=== PATIENT | male | born 1990 | race Caucasian/White ===

== ENCOUNTER 2018-11-25 21:05 | Emergency (ER) | payer BC ==
[2018-11-25] MEDS ORDERED: Sodium Chloride 0.9% 1,000 ML IV ONE (21:39)
--- NOTE | 2018-11-25 21:48 | EDM.PDOC ---
<Kisha West - Last Filed: 11/26/18 02:18> ED HPI GENERAL MEDICAL PROBLEM - General Chief Complaint: Flank Pain Stated Complaint: LOW BACK/TROUBLE PEEING Time Seen by Provider: 11/25/18 21:39 - History of Present Illness INITIAL COMMENTS - FREE TEXT/NARRATIVE: This is Dr. West dictating addendum note as I have assumed care of this case at 12 midnight. I reviewed this case with the nurse practitioner and looked at all of the lab tests. The patient did not want anything for pain and refused IV fluids. He was getting his CT scan performed when the machine became dysfunctional and we are currently trying to ascertain whether or not we can get the CT scan are working again. The patient is aware of these delays and once CT is available we will do the scan and/or reevaluate for disposition if the CT is unavailable. Currently at 1:15 AM CAT scan is down for the rest of the night and the patient has been informed of this. We will do a quick KUB and I will discuss this case with Dr. Benito as the patient is not having any active pain and has normal labs. The patient is comfortable with this and is understanding of the situation. 0215: X-ray revealed no evidence of any kidney stone and I discussed this case with Dr. Benito who is happy to follow this patient in the clinic for further care and evaluation as the CT scan machine is not functional until further notice. The patient has been given this information and advised to push hydration and use hofs-ymk-ritdtic meds for pain management - Related Data Allergies Allergy/AdvReac Type Severity Reaction Status Date / Time No Known Allergies Allergy Verified 11/25/18 21:43 Home Meds: Home Meds . [No Known Home Meds] 11/25/18 [History] Course - Vital Signs Last Recorded V/S: Last Vital Signs Temp 97.0 F 11/26/18 02:23 Pulse 68 11/26/18 02:23 Resp 14 11/26/18 02:23 BP 125/72 11/26/18 02:23 Pulse Ox 96 11/26/18 02:23 - Orders/Labs/Meds Labs: Laboratory Tests 11/25/18 11/25/18 11/25/18 Range/Units 21:57 22:08 22:08 WBC 8.99 (4.0-11.0) K/uL RBC 5.62 (4.50-5.90) M/uL Hgb 16.6 (13.0-17.0) g/dL Hct 47.8 (38.0-50.0) % MCV 85.1 (80.0-98.0) fL MCH 29.5 (27.0-32.0) pg MCHC 34.7 (31.0-37.0) g/dL RDW Std Deviation 41.6 (28.0-62.0) fl RDW Coeff of [place] 14 (11.0-15.0) % Plt Count 293 (150-400) K/uL MPV 10.10 (7.40-12.00) fL Neut % (Auto) 62.7 (48.0-80.0) % Lymph % (Auto) 24.1 (16.0-40.0) % Wolfe % (Auto) 10.8 (0.0-15.0) % Eos % (Auto) 2.1 (0.0-7.0) % Baso % (Auto) 0.3 (0.0-1.5) % Neut # (Auto) 5.6 (1.4-5.7) K/uL Lymph # (Auto) 2.2 (0.6-2.4) K/uL Wolfe # (Auto) 1.0 H (0.0-0.8) K/uL Eos # (Auto) 0.2 (0.0-0.7) K/uL Baso # (Auto) 0.0 (0.0-0.1) K/uL Nucleated RBC % 0.0 /100WBC Nucleated RBCs # 0 K/uL Sodium 140 (136-148) mmol/L Potassium 4.0 (3.5-5.1) mmol/L Chloride 103 (98-107) mmol/L Carbon Dioxide 29.0 (21.0-32.0) mmol/L BUN 16 (7.0-18.0) mg/dL Creatinine 1.2 (0.8-1.3) mg/dL Est Cr Clr Drug Dosing TNP Estimated GFR (MDRD) > 60.0 ml/min Glucose 85 (74-106) mg/dL Calcium 10.0 (8.5-10.1) mg/dL Total Bilirubin 0.3 (0.2-1.0) mg/dL AST 21 (15-37) IU/L ALT 28 (14-63) IU/L Alkaline Phosphatase 117 H (46-116) U/L Total Protein 7.7 (6.4-8.2) g/dL Albumin 4.4 (3.4-5.0) g/dL Globulin 3.3 (2.6-4.0) g/dL Albumin/Globulin Ratio 1.3 (0.9-1.6) Urine Color YELLOW Urine Appearance CLEAR Urine pH 6.0 (5.0-8.0) Ur Specific [place] 1.025 (1.001-1.035) Urine Protein NEGATIVE (NEGATIVE) mg/dL Urine Glucose (UA) NEGATIVE (NEGATIVE) mg/dL Urine Ketones NEGATIVE (NEGATIVE) mg/dL Urine Occult Blood SMALL H (NEGATIVE) Urine Nitrite NEGATIVE (NEGATIVE) Urine Bilirubin NEGATIVE (NEGATIVE) Urine Urobilinogen 0.2 (<2.0) EU/dL Ur Leukocyte Esterase NEGATIVE (NEGATIVE) Urine RBC 0-2 (0-2/HPF) Urine WBC 0-1 (0-5/HPF) Ur Epithelial Cells RARE (NONE-FEW) Urine Bacteria FEW (NEGATIVE) Urine Mucus LIGHT (NONE-MOD) Meds: Medications Discontinued Medications Generic Name Dose Route Start Last Admin Trade Name Prabhakarq PRN Reason Stop Dose Admin Sodium Chloride 1,000 mls @ 999 mls/hr 11/25/18 21:39 11/25/18 22:21 Normal Saline IV 11/25/18 22:39 Not Given STAT ONE Departure - Departure Time of Disposition: 02:19 Disposition: Home, Self-Care 01 Condition: Good Clinical Impression: Flank pain - Discharge Information Instructions: Flank Pain, Adult Referrals: PCP,None [Primary Care Provider] - Forms: ED Department Discharge Additional Instructions: The following information is given to patients seen in the emergency department who are being discharged to home. This information is to outline your options for follow-up care. We provide all patients seen in our emergency department with a follow-up referral. The need for follow-up, as well as the timing and circumstances, are variable depending upon the specifics of your emergency department visit. If you don't have a primary care physician on staff, we will provide you with a referral. We always advise you to contact your personal physician following an emergency department visit to inform them of the circumstance of the visit and for follow-up with them and/or the need for any referrals to a consulting specialist. The emergency department will also refer you to a specialist when appropriate. This referral assures that you have the opportunity for follow-up care with a specialist. All of these measure are taken in an effort to provide you with optimal care, which includes your follow-up. Under all circumstances we always encourage you to contact your private physician who remains a resource for coordinating your care. When calling for follow-up care, please make the office aware that this follow-up is from your recent emergency room visit. If for any reason you are refused follow-up, please contact the [facility] Emergency Department at and asked to speak to the emergency department charge nurse. [facility] [address] [place] [id number] 1. Increase your oral fluids. 2. Tinea to monitor your pain and use llno-ekn-lulajir medications such as Tylenol and ibuprofen 3. As we were unable to do the CAT scan this evening please connect with Dr. Benito our urologist using resources given to above for follow-up care and he can provide further assistance and/or imaging as needed. Return to the ED as needed and as discussed. <Cole Adan E - Last Filed: 11/27/18 10:33> ED HPI GENERAL MEDICAL PROBLEM - General Source of Information: Reports: Patient History Limitations: Reports: No Limitations - History of Present Illness INITIAL COMMENTS - FREE TEXT/NARRATIVE: HISTORY AND PHYSICAL: History of present illness: Patient is a 28-year-old male who presents to the emergency room with complaints of left flank pain and difficulty starting his stream. He states symptoms started a few hours prior to arrival. He denies any injury, trauma or falls. Patient denies any fever, chills, headache, change in vision, syncope or near syncope. Denies any chest pain, back pain, shortness of breath or cough. Denies any abdominal pain, nausea, vomiting, diarrhea, constipation. Has not noted any blood in urine or stool. No previous history of kidney stones. No concerns of STDs. He denies any penile drainage, testicular erythema, swelling or discomfort. Patient has been eating and drinking appropriately. Review of systems: As per history of present illness and below otherwise all systems reviewed and negative. Past medical history: As per history of present illness and as reviewed below otherwise noncontributory. Surgical history: As per history of present illness and as reviewed below otherwise noncontributory. Social history: See social history for further information Family history: As per history of present illness and as reviewed below otherwise noncontributory. Physical exam: General: Well-developed and well-nourished 28-year-old male. Alert and oriented. Nontoxic appearing and in no acute distress. HEENT: Atraumatic, normocephalic, pupils equal and reactive bilaterally, negative for conjunctival pallor or scleral icterus, mucous membranes moist, trachea midline. No drooling or trismus noted. No meningeal signs. No hot potato voice noted. Lungs: Clear to auscultation, breath sounds equal bilaterally, chest nontender. Heart: S1S2, regular rate and rhythm without overt murmur Abdomen: Soft, nondistended, nontender. Negative for masses or hepatosplenomegaly. Left-sided costovertebral tenderness. Pelvis: Stable nontender. Skin: Intact, warm, dry. No lesions or rashes noted. Extremities: Atraumatic, moves all extremities per self without difficulty or deficits, negative for cords or calf pain. Neurovascular unremarkable. Neuro: Awake, alert, oriented. Cranial nerves II through XII unremarkable. Cerebellum unremarkable. Motor and sensory unremarkable throughout. Exam nonfocal. Notes: Patient declines wanting anything for pain at this time. He refuses an IV. There was a delay in imagining, due to power outage and needing to restart the machines. Lab work at this time is unremarkable. VSS. Waiting for imaging to be completed. Dr West will follow this result and disposition patient appropriately. Diagnostics: CBC, CMP, UA, CT abdomen and pelvis Therapeutics: IV fluid (declines) Impression: Flank pain, left Plan: 1. Please use Tylenol and/or Ibuprofen as needed for pain and fever management. 2. Get plenty of Rest. Encourage fluids to prevent dehydration. 3. Please follow up with your primary care provider. Return to the ED as needed as discussed. Definitive disposition and diagnosis as appropriate pending reevaluation and review of above. Onset: Today left flank Pain Score (Numeric/FACES): 8 Social & Family History - Tobacco Use Smoking Status *Q: Current Every Day Smoker Years of Tobacco use: 2 Packs/Tins Daily: 1 - Recreational Drug Use Recreational Drug Use: No ED ROS GENERAL - Review of Systems Review Of Systems: ROS reveals no pertinent complaints other than HPI. ED EXAM,LOWER BACK PAIN/INJURY - Physical Exam Exam: See Below (See dictation) Course - Orders/Labs/Meds Labs: Laboratory Tests 11/25/18 11/25/18 11/25/18 Range/Units 21:57 22:08 22:08 WBC 8.99 (4.0-11.0) K/uL RBC 5.62 (4.50-5.90) M/uL Hgb 16.6 (13.0-17.0) g/dL Hct 47.8 (38.0-50.0) % MCV 85.1 (80.0-98.0) fL MCH 29.5 (27.0-32.0) pg MCHC 34.7 (31.0-37.0) g/dL RDW Std Deviation 41.6 (28.0-62.0) fl RDW Coeff of [place] 14 (11.0-15.0) % Plt Count 293 (150-400) K/uL MPV 10.10 (7.40-12.00) fL Neut % (Auto) 62.7 (48.0-80.0) % Lymph % (Auto) 24.1 (16.0-40.0) % Wolfe % (Auto) 10.8 (0.0-15.0) % Eos % (Auto) 2.1 (0.0-7.0) % Baso % (Auto) 0.3 (0.0-1.5) % Neut # (Auto) 5.6 (1.4-5.7) K/uL Lymph # (Auto) 2.2 (0.6-2.4) K/uL Wolfe # (Auto) 1.0 H (0.0-0.8) K/uL Eos # (Auto) 0.2 (0.0-0.7) K/uL Baso # (Auto) 0.0 (0.0-0.1) K/uL Nucleated RBC % 0.0 /100WBC Nucleated RBCs # 0 K/uL Sodium 140 (136-148) mmol/L Potassium 4.0 (3.5-5.1) mmol/L Chloride 103 (98-107) mmol/L Carbon Dioxide 29.0 (21.0-32.0) mmol/L BUN 16 (7.0-18.0) mg/dL Creatinine 1.2 (0.8-1.3) mg/dL Est Cr Clr Drug Dosing TNP Estimated GFR (MDRD) > 60.0 ml/min Glucose 85 (74-106) mg/dL Calcium 10.0 (8.5-10.1) mg/dL Total Bilirubin 0.3 (0.2-1.0) mg/dL AST 21 (15-37) IU/L ALT 28 (14-63) IU/L Alkaline Phosphatase 117 H (46-116) U/L Total Protein 7.7 (6.4-8.2) g/dL Albumin 4.4 (3.4-5.0) g/dL Globulin 3.3 (2.6-4.0) g/dL Albumin/Globulin Ratio 1.3 (0.9-1.6) Urine Color YELLOW Urine Appearance CLEAR Urine pH 6.0 (5.0-8.0) Ur Specific [place] 1.025 (1.001-1.035) Urine Protein NEGATIVE (NEGATIVE) mg/dL Urine Glucose (UA) NEGATIVE (NEGATIVE) mg/dL Urine Ketones NEGATIVE (NEGATIVE) mg/dL Urine Occult Blood SMALL H (NEGATIVE) Urine Nitrite NEGATIVE (NEGATIVE) Urine Bilirubin NEGATIVE (NEGATIVE) Urine Urobilinogen 0.2 (<2.0) EU/dL Ur Leukocyte Esterase NEGATIVE (NEGATIVE) Urine RBC 0-2 (0-2/HPF) Urine WBC 0-1 (0-5/HPF) Ur Epithelial Cells RARE (NONE-FEW) Urine Bacteria FEW (NEGATIVE) Urine Mucus LIGHT (NONE-MOD)
[2018-11-25 22:45] LABS: BLOOD UREA NITROGEN,BUN 16 mg/dL (7.0-18.0); CHLORIDE,CL 103 mmol/L (98-107); GLUCOSE RANDOM 85 mg/dL (74-106); SODIUM,NA 140 mmol/L (136-148)
--- NOTE | 2018-11-26 01:44 | CR ---
Indication: Left lower quadrant and back pain Technique: KUB supine view Comparison: None Findings/Impression: : Soft tissues: No suspicious calcifications to suggest kidney or ureteral stones. No sign of free air. No sign of soft tissue mass. Bowel: Bowel pattern is within normal limits. Bones: Unremarkable for age. Dictated by Lindsey Handley MD @ Nov 26 2018 1:42AM Signed by Dr. Lindsey Handley @ Nov 26 2018 1:43AM
== END 2018-11-26 02:30 | disposition home or self-care (01) ==
LOC: MW.ED 21:05
DX: R10.9 Unspecified abdominal pain (principal); F17.210 Nicotine dependence, cigarettes, uncomplicated
CPT/HCPCS: 36415; 74018; 74018-26; 80053; 81001; 85025; 99283; 99284-25

== ENCOUNTER 2020-07-20 19:28 | Emergency (ER) | payer BC, MEDICAID ==
[2020-07-20] MEDS ORDERED: Tetracaine HCl/PF 0.5% 4 ML Bottle EYEBOTH ONE (19:37)
[2020-07-20] MEDS ORDERED: Fluorescein 1 MG Ophth Strip EYEBOTH ONE (19:37)
--- NOTE | 2020-07-20 19:59 | EDM.PDOC ---
ED HPI GENERAL MEDICAL PROBLEM - General Chief Complaint: Eye Problems Stated Complaint: HAS SOMETHING IN EYE Time Seen by Provider: 07/20/20 19:29 Source of Information: Reports: Patient History Limitations: Reports: No Limitations - History of Present Illness INITIAL COMMENTS - FREE TEXT/NARRATIVE: HISTORY AND PHYSICAL: History of present illness: Patient is a 29-year-old male who presents to the ED today with concern of bilateral eye pain that started this afternoon. 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 Patient states that he was wearing glasses but the other welders were wearing suits and goggles. Patient states that he noticed after lunch, both his eyes began hurting and feeling as if he had something in both of his eyes. Patient states his eyes have been watering pretty consistently and are bothered by the light. Patient denies any trauma or injury or any known foreign body into his eyes. Patient does not wear contacts or glasses. Patient denies any associated visual changes. Patient denies fever, chills, chest pain, shortness of breath, or cough. Denies headache, neck stiff ness, change in vision, syncope, or near syncope. Denies nausea, vomiting, abdominal pain, diarrhea, constipation, or dysuria. Has not noted any blood in urine or stool. Patient has been eating and drinking appropriately. Review of systems: As per history of present illness and below otherwise all systems reviewed and negative. Past medical history: As per history of present illness and as reviewed below otherwise noncontributory. Surgical history: As per history of present illness and as reviewed below otherwise noncontributory. Social history: See social history for further information Family history: As per history of present illness and as reviewed below otherwise noncontributory. Physical exam: General: Patient is alert, oriented, and in no acute distress. Patient sitting comfortably on exam table. Vitals stable and reviewed by me. HEENT: Face and neck noted to be mildly erythematous. Visual acuity intact. EOMS intact without pain or difficulty. Bilateral eye tearing. Bilateral injection of the bulbar conjunctiva which does not involve the tarsal conjunctiva noted with tearing of bilateral eyes. Fluroscene stain performed with evidence of bilateral corneal haziness and superficial punctate staining of the cornea bilaterally suggestive of photokeratitis . Bilateral upper and lower lids everted without sign of foreign body. Negative for corneal opacity, hyphema, or hypopyon. Other pitts, atraumatic, normocephalic, pupils equal and reactive bilaterally, negative for conjunctival pallor or scleral icterus, mucous membranes moist, TMs normal bilaterally, throat clear, neck supple, nontender, trachea midline. No drooling or trismus noted. No meningeal signs. No hot potato voice noted. Lungs: Clear to auscultation, breath sounds equal bilaterally, chest nontender. Heart: S1S2, regular rate and rhythm without overt murmur Abdomen: Soft, nondistended, nontender. Negative for masses or hepatosplenomegaly. Negative for costovertebral tenderness. Pelvis: Stable nontender. Genitourinary: Deferred. Rectal: Deferred. Skin: Intact, warm, dry. No lesions or rashes noted. Extremities: Atraumatic, negative for cords or calf pain. Neurovascular unremarkable. Neuro: Awake, alert, oriented. Cranial nerves II through XII unremarkable. Cerebellum unremarkable. Motor and sensory unremarkable throughout. Exam nonfocal. Notes: Upon arrival to the ED, patient is vitally stable and does appear to have eye discomfort on exam, otherwise well-appearing. 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 No known injury or trauma to the eyes or change in visual acuity. On exam, patient has visual acuity intact with bilateral eye tearing and injection of the bulbar conjunctive a bilaterally with evidence of corneal haziness and superficial punctate staining to the cornea bilaterally suggestive of photokeratitis likely secondary to welding exposure. Discussed importance for follow-up with the lead etl developer, Dr. Almanzar, to call his clinic in the morning to establish an appointment time. Strict return precautions thoroughly discussed with patient. Voices understanding and is agreeable to plan of care. Denies any further questions or concerns at this time. Diagnostics: Fluroscene stain weeks lamp Therapeutics: Tetracaine ophthalmic Prescription: Erythromycin ophthalmic, Oxycodone 5mg PO Q6H #8 Impression: Photokeratitis, bilateral eyes Plan: 1. Take medication as prescribed. Follow up with the lead etl developer as discussed. 2. 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 3. You can also take ibuprofen and Tylenol as directed for pain and discomfort. Caution when using oxycodone as this can cause drowsiness. Do not operate a vehicle, or heavy equipment while on this medication. 4. Call the lead etl developer clinic in the morning to establish an appointment time. Return to the ED as needed and as discussed. Definitive disposition and diagnosis as appropriate pending reevaluation and review of above. Bilateral Eye Pain Score (Numeric/FACES): 8 - Related Data Allergies Allergy/AdvReac Type Severity Reaction Status Date / Time No Known Allergies Allergy Verified 07/20/20 19:38 Home Meds: Home Meds Erythromycin Base [Erythromycin 0.5% Ophth Oint] 1 applic OP Q4H 5 Days #1 tube 07/20/20 [Rx] oxyCODONE 5 mg PO Q6H PRN #8 tab 07/20/20 [Rx] Past Medical History - Past Health History Medical/Surgical History: Denies Medical/Surgical History HEENT History: Reports: None Cardiovascular History: Reports: None Respiratory History: Reports: None Gastrointestinal History: Reports: None Genitourinary History: Reports: None Musculoskeletal History: Reports: None Neurological History: Reports: None Psychiatric History: Reports: None Endocrine/Metabolic History: Reports: None Hematologic History: Reports: None Immunologic History: Reports: None Oncologic (Cancer) History: Reports: None Dermatologic History: Reports: None - Infectious Disease History Infectious Disease History: Reports: None - Past Surgical History Head Surgeries/Procedures: Reports: None Social & Family History - Family History Family Medical History: No Pertinent Family History - Caffeine Use Caffeine Use: Reports: None - Recreational Drug Use Recreational Drug Use: No ED ROS GENERAL - Review of Systems Review Of Systems: Comprehensive ROS is negative, except as noted in HPI. ED EXAM GENERAL W FULL EYE - Physical Exam Exam: See Below (see dictation) Course - Vital Signs Last Recorded V/S: Last Vital Signs Temp 98.3 F 07/20/20 19:38 Pulse 76 07/20/20 19:38 Resp 18 07/20/20 19:38 BP 156/86 H 07/20/20 19:38 Pulse Ox 99 07/20/20 19:38 - Orders/Labs/Meds Meds: Medications Discontinued Medications Generic Name Dose Route Start Last Admin Trade Name Freq PRN Reason Stop Dose Admin Fluorescein Sodium 1 mg 07/20/20 19:37 07/20/20 19:49 Fluorescein 1 Mg Ophth Strip EYEBOTH 07/20/20 19:38 1 mg ONETIME ONE Administration Tetracaine HCl 1 ml 07/20/20 19:37 07/20/20 19:49 Tetracaine Hcl/Pf 0.5% 4 Ml Bottle EYEBOTH 07/20/20 19:38 1 ml ASDIRECTED ONE Administration Departure - Departure Time of Disposition: 19:56 Disposition: Home, Self-Care 01 Clinical Impression: Photokeratitis of both eyes - Discharge Information Prescriptions: Erythromycin Base [Erythromycin 0.5% Ophth Oint] 1 applic OP Q4H 5 Days #1 tube oxyCODONE 5 mg PO Q6H PRN 2 Days #8 cup PRN Reason: Pain (Severe 7-10) Referrals: Collin Ordonez MD [Primary Care Provider] - Forms: ED Department Discharge Additional Instructions: The following information is given to patients seen in the emergency department who are being discharged to home. This information is to outline your options for follow-up care. We provide all patients seen in our emergency department with a follow-up referral. The need for follow-up, as well as the timing and circumstances, are variable depending upon the specifics of your emergency department visit. If you don't have a primary care physician on staff, we will provide you with a referral. We always advise you to contact your personal physician following an emergency department visit to inform them of the circumstance of the visit and for follow-up with them and/or the need for any referrals to a consulting specialist. The emergency department will also refer you to a specialist when appropriate. This referral assures that you have the opportunity for follow-up care with a specialist. All of these measure are taken in an effort to provide you with optimal care, which includes your follow-up. Under all circumstances we always encourage you to contact your private physician who remains a resource for coordinating your care. When calling for follow-up care, please make the office aware that this follow-up is from your recent emergency room visit. If for any reason you are refused follow-up, please contact the [facility] Emergency Department at and asked to speak to the emergency department charge nurse. [facility], Ophthalmology, Dr. Almanzar [address] [place] [address] [facility] at [address] [address] 1. Take medication as prescribed. Follow up with the lead etl developer as discussed. 2. 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 3. You can also take ibuprofen and Tylenol as directed for pain and discomfort. Caution when using oxycodone as this can cause drowsiness. Do not operate a vehicle, or heavy equipment while on this medication. 4. Call the lead etl developer clinic in the morning to establish an appointment time. Return to the ED as needed and as discussed. Sepsis Event Note (ED) - Evaluation Sepsis Screening Result: No Definite Risk - Focused Exam Vital Signs: Vital Signs Temp Pulse Resp BP Pulse Ox 07/20/20 19:38 98.3 F 76 18 156/86 H 99
== END 2020-07-20 20:19 | disposition home or self-care (01) ==
LOC: MW.ED 19:28
DX: H16.133 Photokeratitis, bilateral (principal)
CPT/HCPCS: 99283